=== PATIENT | female | born 1930 | race African-American/Black ===

== ENCOUNTER → 2017-03-04 | Outpatient (CLI) | payer MEDICARE, MEDICAID ==
[~2017-03-04] MED LIST: CLOPIDOGREL BISULFATE 75 MG TABLET ONE; DIAZEPAM 10 MG TABLET. ONE; HEPARIN SODIUM 5,000 UNIT/ML VIAL for PCVC. ONE; IODIXANOL 270 MG/ML 100 ML VIAL. ONE; IV NORMAL SALINE 1000ML BAG 1,000 ML ONE; IV NORMAL SALINE 500ML BAG 0 ML ONE; LIDOCAINE 1% Multi-Dose 20 ML VIAL. ONE; MIDAZOLAM HCL/PF 2 MG/2 ML VIAL. ONE; fentaNYL PF VIAL 100 MCG/2 ML VIAL ONE; hydrALAZINE 20 MG/ML VIAL. ONE
== END | disposition home or self-care (01) ==
LOC: PCVCINTER 06:50
PROVIDERS: ATTEND Nuclear Medicine Nuclear Cardiology
DX: I70.211 Atherosclerosis of native arteries of extremities with intermittent claudication, right leg (principal); I73.9 Peripheral vascular disease, unspecified; Z88.1 Allergy status to other antibiotic agents
CPT/HCPCS: 37226; 76937; 99152; 99153; C1725; C1769; C1876; C1894; C2623; J0360; J0690; J1644; J2250; J3010; J7030; J7040

== ENCOUNTER → 2018-01-14 | Outpatient (CLI) | payer MEDICARE, MEDICAID | END | disposition home or self-care (01) | LOC: PCVCIMAG 15:10 | DX: I73.9 Peripheral vascular disease, unspecified (principal); I10 Essential (primary) hypertension; J44.9 Chronic obstructive pulmonary disease, unspecified; D86.9 Sarcoidosis, unspecified; I70.8 Atherosclerosis of other arteries; E78.00 Pure hypercholesterolemia, unspecified; Z87.891 Personal history of nicotine dependence; Z79.899 Other long term (current) drug therapy; Z79.82 Long term (current) use of aspirin | CPT/HCPCS: 93926; G0463 ==

== ENCOUNTER → 2018-01-21 | Outpatient (CLI) | payer MEDICARE, MEDICAID ==
[~2018-01-21] MED LIST changes: +CLOPIDOGREL BISULFATE 75 MG TABLET; -CLOPIDOGREL BISULFATE 75 MG TABLET ONE; +DIAZEPAM 10 MG TABLET.; -DIAZEPAM 10 MG TABLET. ONE; +EPTIFIBATIDE BOLUS 2,000 MCG/ML 10ML VIAL. IV; +HEPARIN SODIUM 5,000 UNIT/ML VIAL for PCVC.; -HEPARIN SODIUM 5,000 UNIT/ML VIAL for PCVC. ONE; +IODIXANOL 270 MG/ML 100 ML VIAL.; -IODIXANOL 270 MG/ML 100 ML VIAL. ONE; +IV NORMAL SALINE 1000ML BAG 1,000 ML; -IV NORMAL SALINE 1000ML BAG 1,000 ML ONE; -IV NORMAL SALINE 500ML BAG 0 ML ONE; +LIDOCAINE 1% Multi-Dose 20 ML VIAL.; -LIDOCAINE 1% Multi-Dose 20 ML VIAL. ONE; +MIDAZOLAM HCL/PF 2 MG/2 ML VIAL.; -MIDAZOLAM HCL/PF 2 MG/2 ML VIAL. ONE; +ONDANSETRON PF 4 MG/2 ML VIAL.; +ceFAZolin SODIUM 1 GM VIAL; +fentaNYL PF VIAL 100 MCG/2 ML VIAL; -fentaNYL PF VIAL 100 MCG/2 ML VIAL ONE; +hydrALAZINE 20 MG/ML VIAL.; -hydrALAZINE 20 MG/ML VIAL. ONE
== END ==
LOC: PCVCINTER 08:57
DX: I70.238 Atherosclerosis of native arteries of right leg with ulceration of other part of lower leg (principal); L97.818 Non-pressure chronic ulcer of other part of right lower leg with other specified severity; E78.00 Pure hypercholesterolemia, unspecified; J44.9 Chronic obstructive pulmonary disease, unspecified; F17.210 Nicotine dependence, cigarettes, uncomplicated; I25.10 Atherosclerotic heart disease of native coronary artery without angina pectoris; I70.1 Atherosclerosis of renal artery; I10 Essential (primary) hypertension; I70.8 Atherosclerosis of other arteries; Z79.82 Long term (current) use of aspirin; Z79.899 Other long term (current) drug therapy
CPT/HCPCS: 37226; 75710; 76937; 99152; 99153; C1725; C1769; C1876; C1894; J0360; J0690; J1327; J1644; J2250; J2405; J3010; J7030

== ENCOUNTER → 2018-04-22 | Outpatient (CLI) | payer MEDICARE, MEDICAID | END | disposition home or self-care (01) | LOC: PCVCIMAG 13:48 | DX: I73.9 Peripheral vascular disease, unspecified (principal); I10 Essential (primary) hypertension; E78.00 Pure hypercholesterolemia, unspecified; J44.9 Chronic obstructive pulmonary disease, unspecified; D86.9 Sarcoidosis, unspecified; S81.801A Unspecified open wound, right lower leg, initial encounter; Z87.891 Personal history of nicotine dependence; Z88.8 Allergy status to other drugs, medicaments and biological substances; Z79.899 Other long term (current) drug therapy; Z79.82 Long term (current) use of aspirin; X58.XXXA Exposure to other specified factors, initial encounter; Y93.89 Activity, other specified; Y92.89 Other specified places as the place of occurrence of the external cause; Y99.8 Other external cause status | CPT/HCPCS: 93926; G0463 ==

== ENCOUNTER → 2018-04-23 | Outpatient (CLI) | payer MEDICARE, MEDICAID ==
[~2018-04-23] MED LIST changes: -CLOPIDOGREL BISULFATE 75 MG TABLET; -EPTIFIBATIDE BOLUS 2,000 MCG/ML 10ML VIAL. IV; -IV NORMAL SALINE 1000ML BAG 1,000 ML; +IV NORMAL SALINE 500ML BAG 500 ML; -LIDOCAINE 1% Multi-Dose 20 ML VIAL.; +LIDOCAINE 1% PF 30 ML VIAL.; +LIDOCAINE 1%/EPI 1:100,000 20 ML VIAL.; +NITROGLYCERIN PREMIX 250 ML IV; -ONDANSETRON PF 4 MG/2 ML VIAL.; +PROTAMINE 50 MG/5 ML VIAL. IV; +VANCOMYCIN 1GM IVPB FOR OMNI 250 ML; -ceFAZolin SODIUM 1 GM VIAL
== END | disposition home or self-care (01) ==
LOC: PCVCINTER 09:01
DX: I70.238 Atherosclerosis of native arteries of right leg with ulceration of other part of lower leg (principal); L97.818 Non-pressure chronic ulcer of other part of right lower leg with other specified severity; I77.1 Stricture of artery; I70.1 Atherosclerosis of renal artery; I70.0 Atherosclerosis of aorta; I25.10 Atherosclerotic heart disease of native coronary artery without angina pectoris; I10 Essential (primary) hypertension
CPT/HCPCS: 36252; 37186; 37225; 75716; 76937; 99152; 99153; C1725; C1757; C1769; C1885; C1894; C2623; J0360; J1644; J2250; J3010; J3370; J3490; J7040

== ENCOUNTER → 2018-07-28 | Outpatient (CLI) | payer MEDICARE, MEDICAID ==
--- NOTE | 2018-07-28 22:37 | PCVCIMAG ---
EXAM: RIGHT LOWER EXTREMITY ARTERIAL DUPLEX INDICATION: Peripheral Arterial Disease. Leg pain. FINDINGS: Right Leg: Mild/moderate stenosis nikols[place] common femoral artery. Profunda femoral arteries patent. Superficial femoral artery and popliteal artery are patent including prior superficial femoral artery stent. 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 The peroneal artery and posterior tibial artery patent. IMPRESSION: Occlusion mid right anterior tibial artery. Previous right superficial femoral artery stent maintaining satisfactory patency. Incidental note is made of a 1.9 x 3.6 x 4.2 cm enlarged lymph node in the right groin. Please correlate clinically. LOC:OFFICE
== END ==
LOC: PCVCIMAG 13:36
PROVIDERS: ATTEND Nuclear Medicine Nuclear Cardiology
DX: I73.9 Peripheral vascular disease, unspecified (principal); I25.10 Atherosclerotic heart disease of native coronary artery without angina pectoris; I10 Essential (primary) hypertension; E11.9 Type 2 diabetes mellitus without complications; Z79.4 Long term (current) use of insulin; Z79.82 Long term (current) use of aspirin; Z88.0 Allergy status to penicillin; Z79.84 Long term (current) use of oral hypoglycemic drugs; Z79.899 Other long term (current) drug therapy
CPT/HCPCS: 93926; G0463